=== PATIENT | female | born 1930 | race Caucasian/White ===

== ENCOUNTER 2017-08-02 12:33 | Inpatient (IN) | payer OTHER ==
--- NOTE | 2017-08-02 13:05 | EDPHY ---
H & P Stated Complaint: hypoxia without other symptoms HPI/ROS: CHIEF COMPLAINT: Hypoxic for 2 days HISTORY OF PRESENT ILLNESS: The patient is an 86 y/o female complaining of being hypoxic for the past 2 days. The last time her oxygen levels were checked was in December. Her daughter noticed she had low oxygen readings by using a home oximeter. Her daughter also notes she has had mild cough with clear sputum. She does not use home oxygen. Daughter denies having a recent illness. Denies history of heart disease. Patient denies fever, chills, chest pain, shortness of breath, dyspnea. No vomiting or diarrhea. No headache. Some peripheral edema noted. REVIEW OF SYSTEMS: Aside from elements discussed in the HPI, a comprehensive 10-point review of systems was reviewed and is negative. PAST MEDICAL HISTORY: Pre-diabetic, cholecystectomy SOCIAL HISTORY: Daughter at bedside, lives with daughter in [place], retired VITAL SIGNS: BP: 122/77 O2 Sat:76 Others reviewed by me GENERAL: Elderly female, somewhat odd affect, resting comfortably in no respiratory distress. HEENT: Atraumatic. Eyes: No icterus, no injection. Mouth: Moist mucous membranes. No erythema or lesions. Neck: supple with no adenopathy. LUNGS: Right-sided wet sounding crackles with a few wheezes, and a few rhonchi, Similar sounds on the left. Very diminished breath sounds on the left. CARDIAC: Holosystolic 4/6 murmur. Regular rate and rhythm, no rubs or gallops. ABDOMEN: Soft, nontender, nondistended, bowel sounds normal. BACK: No CVA tenderness. EXTREMITIES: 2+ pedal pitting edema. No trauma. Range of motion is normal throughout. NEURO: Alert and oriented, grossly nonfocal. SKIN: Warm and dry, no rash. PSYCHIATRIC: Normal mentation, no agitation. Portions of this note were transcribed by a medical physics researcher. I personally performed a history, physical exam, medical decision making, and confirmed accuracy of information the transcribed note. - Personal History Current Tetanus/Diphtheria Vaccine: No - Medical/Surgical History Hx Asthma: No Hx Chronic Respiratory Disease: No Hx Diabetes: No Hx Cardiac Disease: No Hx Renal Disease: No Hx Cirrhosis: No Hx Alcoholism: No Hx HIV/AIDS: No Hx Splenectomy or Spleen Trauma: No Other PMH: choly - Social History Smoking Status: Never smoked Constitutional: Initial Vital Signs Temperature (C) 36.4 C 08/02/17 12:37 Heart Rate 72 08/02/17 12:37 Respiratory Rate 18 08/02/17 12:37 Blood Pressure 122/77 H 08/02/17 12:37 O2 Sat (%) 76 L 08/02/17 12:37 O2 Delivery Mode Room Air O2 (L/minute) 4 Allergies/Adverse Reactions: No Known Allergies Allergy (Verified 08/02/17 12:34) Home Medications: Medication Instructions Recorded NK [No Known Home Meds] 08/02/17 Medical Decision Making - Diagnostics EKG Interpretation: 12-LEAD EKG: Please see the full report in [facility]. My interpretation: Sinus rhythm with left ventricular hypertrophy. Imaging Results: Imaging Impressions Chest X-Ray 08/02/17 13:12 Impression: Moderate CHF with basilar opacities, most likely related to effusions and atelectasis. Chest/Thorax CTA 08/02/17 14:16 Impression: 1. No evidence of pulmonary embolus using CT protocol. 2. Moderate bilateral pleural effusions with adjacent compressive atelectatic change. 3. Focal band of consolidation suspected inferior aspect right upper lobe. Consider pneumonia. 4. Groundglass attenuation involving both upper lobes in a patchy distribution. This could be related to pneumonitis versus mild edema/CHF. 5. Multinodular goiter. Imaging: I viewed and interpreted images myself ED Course/Re-evaluation: The patient is an 86 y/o female presenting with hypoxia for 2 days. When she arrived at triage her O2Sat was 76%. She was placed on supplemental O2 and she is currently at 95%. On exam she has right-sided wet sounding crackles with a few wheezes, and a few rhonchi. There are similar sounds that are diminished on the left. 1324: EKG interpreted 1345: Reviewed patient's chest x-rays, she has a significant bilateral pleural effusions. 1417: Reassessed patient and discussed imaging findings. She will need to be admitted for her pleural effusion and hypoxia. Patient and her daughter are comfortable with this plan. 1442: Consulted with hospitalist service, Dr. Chance accepts admission of this patient. A CT scan of the chest as well as echocardiogram were ordered while in the emergency department. Differential Diagnosis: Differential diagnosis for the patient's hypoxemia was considered including but not limited to pulmonary infectious processes, COPD exacerbation, pulmonary emboli, pulmonary edema, congestive heart failure, and cardiac causes. Consult/Admit Bed Type: Dr Chance, U - Data Points Laboratory Results: Laboratory Results 08/02/17 13:17 08/02/17 13:17 08/02/17 08/02/17 08/02/17 13:39 13:17 13:17 WBC RBC Hgb Hct MCV MCH MCHC RDW Plt Count MPV Neut % (Auto) Lymph % (Auto) [place] % (Auto) Eos % (Auto) Baso % (Auto) Nucleat RBC Rel Count Absolute Neuts (auto) Absolute Lymphs (auto) Absolute Monos (auto) Absolute Eos (auto) Absolute Basos (auto) Absolute Nucleated RBC Immature Gran % Immature Gran # D-Dimer Sodium 127 mEq/L L mEq/L (134-144) Potassium 4.8 mEq/L mEq/L (3.5-5.2) Chloride 90 mEq/L L mEq/L (97-110) Carbon Dioxide 30 mEq/l mEq/l (22-31) Anion Gap 7 mEq/L L mEq/L (8-16) BUN 11 mg/dL mg/dL (7-23) Creatinine 0.5 mg/dL L mg/dL (0.6-1.0) Estimated GFR > 60 Glucose 157 mg/dL H mg/dL (70-100) Calcium 8.5 mg/dL mg/dL (8.5-10.4) Ferritin 40.5 ng/mL ng/mL (6.2-264.0) Total Bilirubin 2.0 mg/dL H mg/dL (0.1-1.4) Conjugated Bilirubin 0.3 mg/dL mg/dL (0.0-0.5) Unconjugated Bilirubin 1.7 mg/dL H mg/dL (0.0-1.1) AST 33 IU/L IU/L (14-46) ALT 27 IU/L IU/L (9-52) Alkaline Phosphatase 121 IU/L IU/L (38-126) Troponin I < 0.012 ng/mL ng/mL (0.000-0.034) NT-Pro-B Natriuret Pep 284 pg/mL pg/mL (0-450) Total Protein 6.3 g/dL g/dL (6.3-8.2) Albumin 3.1 g/dL L g/dL (3.5-5.0) Urine Color YELLOW Urine Appearance CLEAR Urine pH 7.0 (5.0-7.5) Ur Specific [place] 1.006 (1.002-1.030) Urine Protein NEGATIVE (NEGATIVE) Urine Ketones NEGATIVE (NEGATIVE) Urine Blood NEGATIVE (NEGATIVE) Urine Nitrate NEGATIVE (NEGATIVE) Urine Bilirubin NEGATIVE (NEGATIVE) Urine Urobilinogen 4.0 EU H EU (0.2-1.0) Ur Leukocyte Esterase TRACE H (NEGATIVE) Urine RBC 5-10 /hpf H /hpf (0-3) Urine WBC 1-3 /hpf /hpf (0-3) Ur Epithelial Cells TRACE /lpf /lpf (NONE-1+) Urine Bacteria TRACE /hpf H /hpf (NONE SEEN) Urine Mucus TRACE /lpf /lpf (NONE-1+) Urine Osmolality 270 mosmo/kg L mosmo/kg (300-900) Ur Random Sodium 87 mEq/L mEq/L (30-90) Urine Glucose NEGATIVE (NEGATIVE) 08/02/17 08/02/17 13:17 13:17 WBC 4.58 10^3/uL 10^3/uL (3.80-9.50) RBC 4.72 10^6/uL 10^6/uL (4.18-5.33) Hgb 14.6 g/dL g/dL (12.6-16.3) Hct 40.2 % % (38.0-47.0) MCV 85.2 fL fL (81.5-99.8) MCH 30.9 pg pg (27.9-34.1) MCHC 36.3 g/dL g/dL (32.4-36.7) RDW 12.7 % % (11.5-15.2) Plt Count 96 10^3/uL L 10^3/uL (150-400) MPV 10.8 fL fL (8.7-11.7) Neut % (Auto) 71.7 % % (39.3-74.2) Lymph % (Auto) 18.3 % % (15.0-45.0) [place] % (Auto) 8.3 % % (4.5-13.0) Eos % (Auto) 1.1 % % (0.6-7.6) Baso % (Auto) 0.4 % % (0.3-1.7) Nucleat RBC Rel Count 0.0 % % (0.0-0.2) Absolute Neuts (auto) 3.28 10^3/uL 10^3/uL (1.70-6.50) Absolute Lymphs (auto) 0.84 10^3/uL L 10^3/uL (1.00-3.00) Absolute Monos (auto) 0.38 10^3/uL 10^3/uL (0.30-0.80) Absolute Eos (auto) 0.05 10^3/uL 10^3/uL (0.03-0.40) Absolute Basos (auto) 0.02 10^3/uL 10^3/uL (0.02-0.10) Absolute Nucleated RBC 0.00 10^3/uL 10^3/uL (0-0.01) Immature Gran % 0.2 % % (0.0-1.1) Immature Gran # 0.01 10^3/uL 10^3/uL (0.00-0.10) D-Dimer 0.49 ug/mLFEU ug/mLFEU (0.00-0.50) Sodium Potassium Chloride Carbon Dioxide Anion Gap BUN Creatinine Estimated GFR Glucose Calcium Ferritin Total Bilirubin Conjugated Bilirubin Unconjugated Bilirubin AST ALT Alkaline Phosphatase Troponin I NT-Pro-B Natriuret Pep Total Protein Albumin Urine Color Urine Appearance Urine pH Ur Specific [place] Urine Protein Urine Ketones Urine Blood Urine Nitrate Urine Bilirubin Urine Urobilinogen Ur Leukocyte Esterase Urine RBC Urine WBC Ur Epithelial Cells Urine Bacteria Urine Mucus Urine Osmolality Ur Random Sodium Urine Glucose Microbiology Results: MICROBIOLOGY 08/02/17 13:39 Nasal, Sinus - Other Respiratory Panel (PCR) - Final No Organism Detected Medications Given: Discontinued Medications Furosemide (Lasix Injection) 20 mg IVP EDNOW ONE Stop: 08/02/17 13:46 Last Admin: 08/02/17 13:59 Dose: 20 mg Departure - Departure Disposition: [facility] Inpatient Acute Clinical Impression: Hypoxemia, Pleural effusion, Hyponatremia, Edema, peripheral Congestive heart failure Qualifiers: Congestive heart failure type: unspecified congestive heart failure type Congestive heart failure chronicity: acute Qualified Code(s): I50.9 - Heart failure, unspecified Condition: Fair Report Scribed for: Luz Stoner Report Scribed by: Elizabeth Aguilera Date of Report: 08/02/17 Time of Report: 13:13
[2017-08-02 13:26] LABS: PLATELET COUNT 96 10^3/uL (150-400)
--- NOTE | 2017-08-02 13:27 | CPEKG ---
Heart Rate: 73 RR Interval: 822 P-R Interval: 156 QRSD Interval: 86 QT Interval: 456 QTC Interval: 503 P [place]: 56 QRS [place]: -23 T Wave [place]: 49 EKG Severity - ABNORMAL ECG - EKG Impression: SINUS RHYTHM EKG Impression: PROBABLE LEFT VENTRICULAR HYPERTROPHY EKG Impression: ANTERIOR ST ELEVATION, PROBABLY DUE TO LVH EKG Impression: BORDERLINE PROLONGED QT INTERVAL Electronically Signed By: Antony Acevedo 05-Aug-2017 17:09:26
[2017-08-02] MEDS ORDERED: FUROSEMIDE 20 MG/2 ML VIAL IVP ONE (13:45)
[2017-08-02] MEDS ORDERED: ONDANSETRON DISINTEGRATING 4 MG TAB PO PRN (14:43)
[2017-08-02] MEDS ORDERED: ACETAMINOPHEN 325 MG TAB PO PRN (14:43)
[2017-08-02] MEDS ORDERED: ONDANSETRON 4 MG/2 ML VIAL IVP PRN (14:43)
[2017-08-02] MEDS ORDERED: IOPAMIDOL (ISOVUE 370) 100 ML BTL IV ONE ×2 (14:58→15:52)
--- NOTE | 2017-08-02 16:22 | GHP ---
[f rep st] HISTORY AND PHYSICAL DATE OF ADMISSION: 08/02/2017 CHIEF COMPLAINT: Hypoxia. HISTORY OF PRESENT ILLNESS: An 86-year-old female, who lives currently with her daughter, who just l ost her 1 month ago, who asked to have her vital signs checked by her daughter today, and was found to be hypoxic with oxygen saturations at home oximetry in the 80s, therefore presented to the Emergency Department for evaluation. In the Emergency Department, she reports feeling fatigued. Den ies any specific pleuritic chest pain, chest pain, or shortness of breath. She has noted some decrea se in energy, but, again, has gone through the recent loss of her spouse. The patient denies specifi donell orthopnea, PND, chest pain, pleuritic chest pain. The daughter reports the patient has been co ughing some with a little more sputum production than typical, and that the sputum it is slightly dis colored, but without blood. The patient denies any changes in her bowel habits, abdominal pain, naus ea, or vomiting. Her oral intake has been less recently secondary to grief. She has had no unintent ional weight loss or weight gain. She has noted an increase in lower extremity edema over the course of the last several days, which also has been limiting her activity. Otherwise, denies any dysuria, hematuria, myalgias, arthralgias, or new rashes. PAST MEDICAL HISTORY: Removal of a basal cell carcinoma from her nose. SOCIAL HISTORY: Negative for tobacco, alcohol, illicit drugs. She lives with her daughter. ADVANCED DIRECTIVES: The patient is full cor, full tube. Her daughter is her medical decision maker . REVIEW OF SYSTEMS: A 10-point review of systems is negative with the exception of that reported in t he HPI. PHYSICAL EXAMINATION: VITAL SIGNS: Blood pressure is 130/80, heart rate 75, respiratory rate 16, 76 % on room air, 96 on 4 L, 36.4. GENERAL: This is a healthy-appearing elderly female, sitting up on the commode. HEENT: Notable for moist mucous membranes. Eye exam is negative for any icterus. CAR DIAC: The patient is regular. There is a loud systolic murmur heard best at the left sternal border . GASTROINTESTINAL: Positive bowel sounds. Abdomen is obese, soft. The patient reports mild diffu se tenderness to deep palpation. No rebound. No guarding. MUSCULOSKELETAL: Notable for 2+ edema t o below the ankles. SKIN: Exam is negative for any rashes. NEUROLOGIC: The patient is alert and o riented x3. Stable, ambulating with minimal assist. Strength is 5/5 bilaterally of the upper and lo wer extremities. Sensation is intact throughout. PSYCHIATRIC: She is pleasant and cooperative on i nterview and examination. DATA: White count 4.5, hematocrit 40.2, platelet count of 96, previous baselines in the range of 117 -140. Sodium 127, creatinine 0.5, blood glucose 157, AST 33, ALT 27, bilirubin of 2.0, troponin less than 0.012. BNP of 284. Chest x-ray, which I personally reviewed and interpreted, shows bilateral pleural effusions, left gre ater than right, with increased intrapulmonary markings. EKG, which I personally reviewed and interp reted, shows sinus rhythm, left axis deviation, biphasic P-wave in V1, no acute ST-T changes. ASSESSMENT AND PLAN: This is an 86-year-old female presenting with hypoxia. 1. Acute hypoxic respiratory failure, presumed secondary to pleural effusions and possible intrapare nchymal process. Differential would include heart failure, potentially takotsubo or more chronic sys tolic or diastolic heart failure. Possible infectious process, although symptoms are not highly susp icious for this. Low suspicion for pulmonary embolism. Possible malignancy, although, again, second skip symptoms are lacking. We will begin with a CT of the chest, transthoracic echocardiogram, and if appropriate thoracentesis. 2. Chronic thrombocytopenia. Unclear if this leads to the patient's new presentation of pulmonary e ffusions. We will initiate above workup and follow. 3. Heart murmur. The patient is unable to tell me if this is new. We will start with a transthorac ic echocardiogram. 4. Hyponatremia. Based on the exam, suspect it is hypervolemic in nature. We will send urine studi es. The patient received 1 dose of Lasix in the Emergency Department, will not repeat until further workup available. 5. Diet: Cardiac. 6. Prophylaxis: Holding on Lovenox for potential thoracentesis. We will place SCDs. DISPOSITION: I expect greater than 2 midnights. I have discussed the case with the emergency room shani gallego. The patient will be triaged to the PCU for care. /[id number]/MODL
--- NOTE | 2017-08-02 16:41 | PDMN ---
Medical Necessity Medical necessity: C/M review: est. > 2 MN LOS for eval and TX of acute hypoxic respiratory failure secondary to pleural effusions and possible intraparenchymal process, heart murmur, hyponatremia requiring planned echocardiogram, possible future thoracentesis during this admission, ongoing cardiac monitoring, supplemental O2, acute inpt PT/OT, comorbid chronic thrombocytopenia per H/P.
--- NOTE | 2017-08-02 17:08 | ECHO ---
[email or web address] [address] [address] Main: [phone] Fax: Transthoracic Echocardiogram Name: NATHALIE DAWKINS MR#: [id number] Study Date: 08/02/2017 Study Time: 04:08 PM Date of : 1930 Age: 86 year(s) Height: 154.9 cm (61 in.) Weight: 73.48 kg (162 lb.) BSA: 1.73 m2 Gender: Female Examination: Echo Indication: heart failure, Murmur, effusions Image Quality: Adequate Contrast: Requested by: Luz Stoner BP: / Heart Rate: 75 bpm Rhythm: Normal sinus rhythm Indication: heart failure, Murmur, effusions Procedure Staff Patient Ambassador: Jyoti Holloway Reading Physician: Antony Acevedo Requesting Provider: Conclusions: Moderate to Severe concentric LV hypertrophy. EF is 64 %. Unable to assess diastolic dysfunction. The left atrium is moderately to severely dilated. The right atrium is mildly to moderately dilated. Severe mitral valve leaflet calcification is present. Severe mitral annular calcification. Moderate mitral valve stenosis is present. Cannot rule out bicuspid aortic valve. Moderate aortic cusp calcification is present. Moderate calcific aortic valve stenosis. Mild tricuspid regurgitation is present. Right ventricular systolic pressure measures 48mmHg. There is a pleural effusion. Measurements: Chambers Valvular Assessment AV/MV Valvular Assessment TV/PV Normal Normal Normal Name Value Range Name Value Range Name Value Range Ao Kaity (MM): 2.6 cm (2.2 cm-3.7 AV Vmax: 2.95 m/s (1 m/s-1.7 TR Vmax: 3.26 mm/s ( - ) cm) m/s) TR PGmax: 43 mmHg ( - ) IVSd (2D): 1.5 cm (0.6 cm-1.1 AV maxP mmHg ( - ) syst. PAP: 48 mmHg ( - ) cm) AV meanP mmHg ( - ) PV Vmax: 1.22 m/s (0.6 m/s-0.9 LVDd (2D): 3.5 cm (3.9 cm-5.3 LVOT Vmax: 1.14 m/s (0.7 m/s-1.1 m/s) cm) m/s) PV PGmax: 6 mmHg ( - ) LVDs (2D): 2.0 cm (2.1 cm-4 OBDULIO (Vmax): 1.1 cm2 ( - ) cm) OBDULIO (VTI): 1.0 cm ( - ) LVPWd (2D): 1.2 cm ( - ) MV maxP mmHg ( - ) LVOTd 1.9 cm 1.9 cm mm MV meanP mmHg ( - ) LVEF (BP): 64 % (>=55 %) MV PHT: 0.090 s ( - ) Patient: NATHALIE DAWKINS Study Date: 08/02/2017 Page 1 of 2 04:08 PM RVDd(2D): 2.8 cm (1.9 cm-3.8 MVA (Vmax): 0.8 m/s ( - ) cmmm) MVA (PHT): 2.4 s ( - ) Continued Measurements: Chambers Valvular Assessment AV/MV Valvular Assessment TV/PV Name Value Name Value Name Value LADs Lon.5 cm MV VTI: 69.40 cm CVP (est.): 5 mmHg LA Area: 20.8 cm2 LA Volume: 82 ml LA Volume Index: 47.4 ml/m2 RA Area: 21.8 cm2 Findings: Left Ventricle: Normal size left ventricle. Moderate to Severe concentric LV hypertrophy. Normal global systolic LV function. EF is 64 %. No regional wall motion abnormality. Unable to assess diastolic dysfunction. Right Ventricle: Normal size right ventricle. Normal RV function. Left Atrium: The left atrium is moderately to severely dilated. Right Atrium: The right atrium is mildly to moderately dilated. Mitral Valve: Severe mitral valve leaflet calcification is present. Severe mitral annular calcification. Moderate mitral valve stenosis is present. There is no mitral valve regurgitation. Calcification noted on the mitral valve chordea as well. Aortic Valve: Cannot rule out bicuspid aortic valve. Moderate aortic cusp calcification is present. Trivial aortic valve regurgitation. Mean aortic valve gradient 24. Moderate calcific aortic valve stenosis. Tricuspid Valve: The tricuspid valve appears normal. Mild tricuspid regurgitation is present. Right ventricular systolic pressure measures 48mmHg. The pulmonary artery pressure is moderately increased. Pulmonic Valve: Pulmonary valve not well visualized. Aorta: Normal size aortic root measuring 2.6 cm. IVC: The IVC is normal sized. Pericardium: Trivial pericardial effusion. There is a pleural effusion. (No Signature Object) Patient: NATHALIE DAWKINS Study Date: 08/02/2017 Page 2 of 2 04:08 PM [id number]
--- NOTE | 2017-08-02 17:08 | ECHO ---
[email or web address] [address] [address] Main: [phone] Fax: Transthoracic Echocardiogram Name: NATHALIE DAWKINS MR#: [id number] Study Date: 08/02/2017 Study Time: 04:08 PM Date of : 1930 Age: 86 year(s) Height: 154.9 cm (61 in.) Weight: 73.48 kg (162 lb.) BSA: 1.73 m2 Gender: Female Examination: Echo Indication: heart failure, Murmur, effusions Image Quality: Adequate Contrast: Requested by: Luz Stoner BP: / Heart Rate: 75 bpm Rhythm: Normal sinus rhythm Indication: heart failure, Murmur, effusions Procedure Staff Primary Care Provider: Jyoti Holloway Reading Physician: Antony Acevedo Requesting Provider: Conclusions: Moderate to Severe concentric LV hypertrophy. EF is 64 %. Unable to assess diastolic dysfunction. The left atrium is moderately to severely dilated. The right atrium is mildly to moderately dilated. Severe mitral valve leaflet calcification is present. Severe mitral annular calcification. Moderate mitral valve stenosis is present. Cannot rule out bicuspid aortic valve. Moderate aortic cusp calcification is present. Moderate calcific aortic valve stenosis. Mild tricuspid regurgitation is present. Right ventricular systolic pressure measures 48mmHg. There is a pleural effusion. Measurements: Chambers Valvular Assessment AV/MV Valvular Assessment TV/PV Normal Normal Normal Name Value Range Name Value Range Name Value Range Ao Kaity (MM): 2.6 cm (2.2 cm-3.7 AV Vmax: 2.95 m/s (1 m/s-1.7 TR Vmax: 3.26 mm/s ( - ) cm) m/s) TR PGmax: 43 mmHg ( - ) IVSd (2D): 1.5 cm (0.6 cm-1.1 AV maxP mmHg ( - ) syst. PAP: 48 mmHg ( - ) cm) AV meanP mmHg ( - ) PV Vmax: 1.22 m/s (0.6 m/s-0.9 LVDd (2D): 3.5 cm (3.9 cm-5.3 LVOT Vmax: 1.14 m/s (0.7 m/s-1.1 m/s) cm) m/s) PV PGmax: 6 mmHg ( - ) LVDs (2D): 2.0 cm (2.1 cm-4 OBDULIO (Vmax): 1.1 cm2 ( - ) cm) OBDULIO (VTI): 1.0 cm ( - ) LVPWd (2D): 1.2 cm ( - ) MV maxP mmHg ( - ) LVOTd 1.9 cm 1.9 cm mm MV meanP mmHg ( - ) LVEF (BP): 64 % (>=55 %) MV PHT: 0.090 s ( - ) Patient: NATHALIE DAWKINS Study Date: 08/02/2017 Page 1 of 2 04:08 PM RVDd(2D): 2.8 cm (1.9 cm-3.8 MVA (Vmax): 0.8 m/s ( - ) cmmm) MVA (PHT): 2.4 s ( - ) Continued Measurements: Chambers Valvular Assessment AV/MV Valvular Assessment TV/PV Name Value Name Value Name Value LADs Lon.5 cm MV VTI: 69.40 cm CVP (est.): 5 mmHg LA Area: 20.8 cm2 LA Volume: 82 ml LA Volume Index: 47.4 ml/m2 RA Area: 21.8 cm2 Findings: Left Ventricle: Normal size left ventricle. Moderate to Severe concentric LV hypertrophy. Normal global systolic LV function. EF is 64 %. No regional wall motion abnormality. Unable to assess diastolic dysfunction. Right Ventricle: Normal size right ventricle. Normal RV function. Left Atrium: The left atrium is moderately to severely dilated. Right Atrium: The right atrium is mildly to moderately dilated. Mitral Valve: Severe mitral valve leaflet calcification is present. Severe mitral annular calcification. Moderate mitral valve stenosis is present. There is no mitral valve regurgitation. Calcification noted on the mitral valve chordea as well. Aortic Valve: Cannot rule out bicuspid aortic valve. Moderate aortic cusp calcification is present. Trivial aortic valve regurgitation. Mean aortic valve gradient 24. Moderate calcific aortic valve stenosis. Tricuspid Valve: The tricuspid valve appears normal. Mild tricuspid regurgitation is present. Right ventricular systolic pressure measures 48mmHg. The pulmonary artery pressure is moderately increased. Pulmonic Valve: Pulmonary valve not well visualized. Aorta: Normal size aortic root measuring 2.6 cm. IVC: The IVC is normal sized. Pericardium: Trivial pericardial effusion. There is a pleural effusion. (No Signature Object) Patient: NATHALIE DAWKINS Study Date: 08/02/2017 Page 2 of 2 04:08 PM [id number]
--- NOTE | 2017-08-02 17:08 | ECHO ---
[email or web address] [address] Main: [phone] Fax: Transthoracic Echocardiogram Name: NATHALIE DAWKINS MR#: [id number] Study Date: 08/02/2017 Study Time: 04:08 PM Date of : 1930 Age: 86 year(s) Height: 154.9 cm (61 in.) Weight: 73.48 kg (162 lb.) BSA: 1.73 m2 Gender: Female Examination: Echo Indication: heart failure, Murmur, effusions Image Quality: Adequate Contrast: Requested by: Luz Stoner BP: / Heart Rate: 75 bpm Rhythm: Normal sinus rhythm Indication: heart failure, Murmur, effusions Procedure Staff Maxillofacial Pathology: Jyoti Holloway Reading Physician: Antony Acevedo Requesting Provider: Conclusions: Moderate to Severe concentric LV hypertrophy. EF is 64 %. Unable to assess diastolic dysfunction. The left atrium is moderately to severely dilated. The right atrium is mildly to moderately dilated. Severe mitral valve leaflet calcification is present. Severe mitral annular calcification. Moderate mitral valve stenosis is present. Cannot rule out bicuspid aortic valve. Moderate aortic cusp calcification is present. Moderate calcific aortic valve stenosis. Mild tricuspid regurgitation is present. Right ventricular systolic pressure measures 48mmHg. There is a pleural effusion. Measurements: Chambers Valvular Assessment AV/MV Valvular Assessment TV/PV Normal Normal Normal Name Value Range Name Value Range Name Value Range Ao Kaity (MM): 2.6 cm (2.2 cm-3.7 AV Vmax: 2.95 m/s (1 m/s-1.7 TR Vmax: 3.26 mm/s ( - ) cm) m/s) TR PGmax: 43 mmHg ( - ) IVSd (2D): 1.5 cm (0.6 cm-1.1 AV maxP mmHg ( - ) syst. PAP: 48 mmHg ( - ) cm) AV meanP mmHg ( - ) PV Vmax: 1.22 m/s (0.6 m/s-0.9 LVDd (2D): 3.5 cm (3.9 cm-5.3 LVOT Vmax: 1.14 m/s (0.7 m/s-1.1 m/s) cm) m/s) PV PGmax: 6 mmHg ( - ) LVDs (2D): 2.0 cm (2.1 cm-4 OBDULIO (Vmax): 1.1 cm2 ( - ) cm) OBDULIO (VTI): 1.0 cm ( - ) LVPWd (2D): 1.2 cm ( - ) MV maxP mmHg ( - ) LVOTd 1.9 cm 1.9 cm mm MV meanP mmHg ( - ) LVEF (BP): 64 % (>=55 %) MV PHT: 0.090 s ( - ) Patient: NATHALIE DAWKINS Study Date: 08/02/2017 Page 1 of 2 04:08 PM RVDd(2D): 2.8 cm (1.9 cm-3.8 MVA (Vmax): 0.8 m/s ( - ) cmmm) MVA (PHT): 2.4 s ( - ) Continued Measurements: Chambers Valvular Assessment AV/MV Valvular Assessment TV/PV Name Value Name Value Name Value LADs Lon.5 cm MV VTI: 69.40 cm CVP (est.): 5 mmHg LA Area: 20.8 cm2 LA Volume: 82 ml LA Volume Index: 47.4 ml/m2 RA Area: 21.8 cm2 Findings: Left Ventricle: Normal size left ventricle. Moderate to Severe concentric LV hypertrophy. Normal global systolic LV function. EF is 64 %. No regional wall motion abnormality. Unable to assess diastolic dysfunction. Right Ventricle: Normal size right ventricle. Normal RV function. Left Atrium: The left atrium is moderately to severely dilated. Right Atrium: The right atrium is mildly to moderately dilated. Mitral Valve: Severe mitral valve leaflet calcification is present. Severe mitral annular calcification. Moderate mitral valve stenosis is present. There is no mitral valve regurgitation. Calcification noted on the mitral valve chordea as well. Aortic Valve: Cannot rule out bicuspid aortic valve. Moderate aortic cusp calcification is present. Trivial aortic valve regurgitation. Mean aortic valve gradient 24. Moderate calcific aortic valve stenosis. Tricuspid Valve: The tricuspid valve appears normal. Mild tricuspid regurgitation is present. Right ventricular systolic pressure measures 48mmHg. The pulmonary artery pressure is moderately increased. Pulmonic Valve: Pulmonary valve not well visualized. Aorta: Normal size aortic root measuring 2.6 cm. IVC: The IVC is normal sized. Pericardium: Trivial pericardial effusion. There is a pleural effusion. (No Signature Object) Patient: NATHALIE DAWKINS Study Date: 08/02/2017 Page 2 of 2 04:08 PM [id number]
[2017-08-03 05:17] LABS: PLATELET COUNT 103 10^3/uL (150-400)
[2017-08-03 05:20] VITALS: BP 144/64; PULSE 73; RESP 16; TEMP 97.6
[2017-08-03 10:51] LABS: INR 1.35 (0.83-1.16); PROTIME(PATIENT) 16.7 SEC (12.0-15.0)
[2017-08-03] MEDS ORDERED: LIDOCAINE 1% 300 MG/30 ML SDV ONE (11:28)
[2017-08-03] MEDS ORDERED: FUROSEMIDE 20 MG/2 ML VIAL IVP ONE (11:58)
--- NOTE | 2017-08-03 12:03 | PDHOMEO2F ---
Home Oxygen Face to Face Home Orders: I certify that a physician or a nurse practitioner or physician's digital assistant has had a hwio-yq-slxr encounter with this patient on the date of this order due to the diagnosis listed, which relates to the primary reason the patient requires home oxygen. Alternative treatments have been tried, or considered, and deemed ineffective. It is anticipated that supplemental oxygen will result in improvement with treatment. Home oxygen qualifying diagnosis: CHF SpO2 on room air (%): 76% Frequency of home oxygen needed: continuous Home oxygen delivery device: nasal cannula Concentrator: Yes E-tanks for mobility and back up: Yes If ordering portable O2, is the patient mobile in the home?: Yes I certify that, based on these findings, the home oxygen is medically necessary for this patient for the following length of time. Length of time home oxygen needed: 99 years
--- NOTE | 2017-08-03 12:03 | PDHOMEO2F ---
Home Oxygen Face to Face Home Orders: I certify that a physician or a nurse practitioner or physician's household assistant has had a gzwx-je-bqcu encounter with this patient on the date of this order due to the diagnosis listed, which relates to the primary reason the patient requires home oxygen. Alternative treatments have been tried, or considered, and deemed ineffective. It is anticipated that supplemental oxygen will result in improvement with treatment. Home oxygen qualifying diagnosis: CHF SpO2 on room air (%): 76% Frequency of home oxygen needed: continuous Home oxygen delivery device: nasal cannula Concentrator: Yes E-tanks for mobility and back up: Yes If ordering portable O2, is the patient mobile in the home?: Yes I certify that, based on these findings, the home oxygen is medically necessary for this patient for the following length of time. Length of time home oxygen needed: 99 years
--- NOTE | 2017-08-03 12:03 | PDHOMEO2F ---
Home Oxygen Face to Face Home Orders: I certify that a physician or a nurse practitioner or physician's budget assistant has had a bazz-jq-cdvw encounter with this patient on the date of this order due to the diagnosis listed, which relates to the primary reason the patient requires home oxygen. Alternative treatments have been tried, or considered, and deemed ineffective. It is anticipated that supplemental oxygen will result in improvement with treatment. Home oxygen qualifying diagnosis: CHF SpO2 on room air (%): 76% Frequency of home oxygen needed: continuous Home oxygen delivery device: nasal cannula Concentrator: Yes E-tanks for mobility and back up: Yes If ordering portable O2, is the patient mobile in the home?: Yes I certify that, based on these findings, the home oxygen is medically necessary for this patient for the following length of time. Length of time home oxygen needed: 99 years
--- NOTE | 2017-08-03 12:07 | PDHOMEO2F ---
Home Oxygen Face to Face Home Orders: I certify that a physician or a nurse practitioner or physician's retirement assistant has had a mtjg-eb-siys encounter with this patient on the date of this order due to the diagnosis listed, which relates to the primary reason the patient requires home oxygen. Alternative treatments have been tried, or considered, and deemed ineffective. It is anticipated that supplemental oxygen will result in improvement with treatment. Home oxygen qualifying diagnosis: chf SpO2 on room air (%): 76% Frequency of home oxygen needed: continuous Home oxygen liters per minute: 2-4 Home oxygen delivery device: nasal cannula Concentrator: Yes E-tanks for mobility and back up: Yes If ordering portable O2, is the patient mobile in the home?: Yes I certify that, based on these findings, the home oxygen is medically necessary for this patient for the following length of time. Length of time home oxygen needed: 99 years
--- NOTE | 2017-08-03 12:07 | PDHOMEO2F ---
Home Oxygen Face to Face Home Orders: I certify that a physician or a nurse practitioner or physician's collections assistant has had a faui-ht-hcia encounter with this patient on the date of this order due to the diagnosis listed, which relates to the primary reason the patient requires home oxygen. Alternative treatments have been tried, or considered, and deemed ineffective. It is anticipated that supplemental oxygen will result in improvement with treatment. Home oxygen qualifying diagnosis: chf SpO2 on room air (%): 76% Frequency of home oxygen needed: continuous Home oxygen liters per minute: 2-4 Home oxygen delivery device: nasal cannula Concentrator: Yes E-tanks for mobility and back up: Yes If ordering portable O2, is the patient mobile in the home?: Yes I certify that, based on these findings, the home oxygen is medically necessary for this patient for the following length of time. Length of time home oxygen needed: 99 years
--- NOTE | 2017-08-03 12:07 | PDHOMEO2F ---
Home Oxygen Face to Face Home Orders: I certify that a physician or a nurse practitioner or physician's rehab care assistant has had a zvgb-uu-hqtv encounter with this patient on the date of this order due to the diagnosis listed, which relates to the primary reason the patient requires home oxygen. Alternative treatments have been tried, or considered, and deemed ineffective. It is anticipated that supplemental oxygen will result in improvement with treatment. Home oxygen qualifying diagnosis: chf SpO2 on room air (%): 76% Frequency of home oxygen needed: continuous Home oxygen liters per minute: 2-4 Home oxygen delivery device: nasal cannula Concentrator: Yes E-tanks for mobility and back up: Yes If ordering portable O2, is the patient mobile in the home?: Yes I certify that, based on these findings, the home oxygen is medically necessary for this patient for the following length of time. Length of time home oxygen needed: 99 years
[2017-08-03 12:09] VITALS: O2SAT 85
--- NOTE | 2017-08-03 12:29 | GCON ---
[f rep st] CONSULTATION CARDIOVASCULAR CONSULTATION CHIEF COMPLAINT: Low oxygen level. HISTORY OF PRESENT ILLNESS: Her daughter brought her into the hospital because her oxygen level was low. The mother had no complaints. No chest pain. No shortness of breath. No orthopnea, PND. No dyspnea on exertion. No fever, chills, cough. No lightheadedness, dizziness. No focal neurologic d eficits. No nausea, vomiting, diarrhea. No rashes. No arthralgias. The patient says she feels perfectly fine and has no other specific complaints at all. She has had quite a hard year with her dying in May after taking care of him for a year with a massive stroke, and the daughter and she took care of the the whole time at home, and then he at home. The daughter thinks she has broken heart syndrome after that, her mother is v bharat upset about losing her . Her life has been much worse since then, and for the last year, she has been eating a lot of bad food s, candy and things really in reaction to the fact that they were both angry at the world that her hu marcos had a stroke after eating organic foods and trying to be healthy for his whole life, so they lan ve been kind of eating bad foods and rebelling against a healthy diet. The daughter thinks that has also been a factor in her gaining weight and being a little less active. The patient herself really is free of chest tightness, chest pain, jaw pain, can sleep flat, and in f act, during my examination, lies flat for over 40 minutes while I was in the room talking to them. The patient has dyslipidemia. She is obese. The patient takes no medications at home. It turns out that the daughter has been watching, and often her oxygen saturation is in the 80s, and that is why she came in at this point in time. She has had increasing lower extremity edema for several days. She has been moving around a little l ess than normal. CARDIAC RISK FACTORS: Negative for hypertension, diabetes mellitus, hyperuricemia. Positive for obe sity. Negative for smoking and negative for known coronary disease. Coronary artery disease does not run in the family. MEDICATIONS: Noted and she takes no significant medicines all the time. REVIEW OF SYSTEMS: Twelve-point review of systems negative except for basal cell carcinoma and as no shannan above. FAMILY HISTORY: There is no family history of premature coronary artery disease. No history of unex plained sudden at a young age in her family. SOCIAL HISTORY: She lives with her daughter out in [place] in [facility]. She has plenty of places she can walk, and she is willing to walk in the house. She does not smoke. She does not drink sign ificant amounts of alcohol. She was born in [place]. She loves opera. 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 She had a husban d for 57 years and is heartbroken that he is gone. He was a beautiful hotel or motel manager, and she misses h im every day, all the time PHYSICAL EXAMINATION: VITAL SIGNS: Blood pressure 125/75, heart rate 67, respiratory rate 12. She is afebrile. HEENT: Pupils equal and reactive. Mucous membranes and mouth moist. NECK: Supple. CARDIOVASCULAR: Reveals S1, S2. Systolic ejection murmur is present at the 2nd right intercostal sp camille moves up toward the neck, but there is no delayed carotid upstroke. There is a holosystolic murm ur at the left sternal border. ABDOMEN: Soft, nontender, without masses. CVA: No tenderness. EXT REMITIES: She has trace edema bilaterally. Homans sign negative. SKIN: Age-related changes. No s kin breakdown is present. No open wounds. NEUROLOGIC: She is very cooperative and answers all ques tions without any problems. She is very pleasant and cooperative. PSYCH: No obvious anxiety or dep ression. LABORATORIES: White count 4.5, hematocrit 40. Sodium 128, potassium 4.2, chloride 92, CO2 of 30, cr eatinine 0.5. Hemoglobin A1c 8.6. Hematocrit 37, white count 5.3. BNP 264. CT scan shows question of CHF, question of atelectasis, question of pneumonia. Echo shows moderate m itral valve stenosis, moderate aortic stenosis with a mean gradient 24, RV pressure 48, LVH. There is sinus rhythm, left axis deviation, no significant ST-T changes. Chest CT was negative for cancer, negative for pulmonary embolic disease. Chest x-ray itself was read as showing moderate CHF with basilar opacities. ASSESSMENT AND PLAN: 1. Congestive heart failure. 2. Peripheral edema. 3. Aortic stenosis. 4. Diastolic dysfunction. 5. Left ventricular hypertrophy. 6. Mitral stenosis. 7. Pulmonary hypertension. 8. Peripheral edema. The patient has heart failure on her x-ray. She is diuresing well with Lasix. She has pleural effus ions and the daughter and the mother wanted to know if I thought she needed to have the effusions tap ped today. I told her that if we do not tap the effusions today, we will not have as much informatio n about what might be causing her problems. Specifically, cancer is a diagnosis we would miss if we did not tap today that matters. Otherwise, we could wait and see what is going on. The mother is co ncerned about getting a needle put in her back and would prefer not to do that right now, but rather go home on diuretics and follow up in the office, and if effusions continue to be a problem when her failure is improved, then they would consider possibly doing more evaluation for that. She is not in terested at all in finding out if she has cancer at this point anyway. She certainly has a broken heart from her . She certainly has significant valvular heart dise ase, but she does not want valvular surgery. She feels like she can get around and live the life she wants quite well without it and is not going to go follow that route at this time at all. The daughter has many questions and is particularly concerned about what we should do about oxygen. I told her if her mother was not complaining of shortness of breath, was not cyanotic, or having sign ificant rapid respiratory rate or inability to get around and do things that she did not have to chec k her oxygen saturation all the time. If her oxygen saturation stays low, then I believe in doing ox ygen when she is in bed at night, when she is sitting around and not doing much, but I want her to be very careful not to trip on her oxygen apparatus because she is very fragile, has no good strength. Her balance I do not think is that great, and I think that if she is on oxygen all the time, she has a very high risk of having trouble with the cord and with the oxygen tank, and it is hard enough for her to get around without any of that stuff right now, so we need to build up her strength and see w here we go with this. I did tell her that the hospitalist and other people would give her opinions about what to do with ox ygen, and she should listen very carefully to them. They may be more interested than I am in keeping the oxygen at a certain level, but if she has no complaints at all, she is getting about, she is not tachypneic, and she is not feeling shortness of breath or breathless, they do not have to be checkin g her oxygen all the time. It is very hard for them to understand exactly what to do, and I have tried to make it simple so they have a good idea. I want her to follow very carefully with her family practice doctors as well. I told her I would not be, however, ordering oxygen for her and writing and working with that prescript ion, so she can have the other doctors arrange that the way that they all decide is the best way for her to have this done. She does have risk for coronary artery disease, and we can do further evaluations for that later. Ri ght now, she feels good enough that she would just like to get her medications stabilized and get eri e and then follow up afterwards. Her blood sugars have been bad, and her diet has been horrible. We talked extensively about this, and she swears she is going to get back on a better diet. We also came up with an exercise regime where I want her to exercise for at least 5 minutes walking c arefully in the house 2 times before lunch and 2 times after lunch, and she and the daughter have com mitted to trying this. If they have problems with it, we would want to know, and we want to follow u p with how things are going. All her other questions have been answered. Right now, we will watch her and see how she does. She really does not want to pursue anything else right now further, and that is acceptable to me since th at is what she wants. I spent a great deal of time going over all this with the daughter and she. Thank you very much for asking us to see this patient. /[id number]/MODL
--- NOTE | 2017-08-03 12:34 | ASMTCMCOM ---
CM Note CM Note Notes: Chart reviewed and discussed w/MD and RN. Pt lives at home w/dtr. Pt will dc home w/dtr and home O2. They do not want any other services per MD. Date Signed: 08/03/2017 12:34 PM Electronically Signed By:Yamileth Randall RN
--- NOTE | 2017-08-03 14:17 | PDHOMEO2F ---
Home Oxygen Face to Face Home Orders: I certify that a physician or a nurse practitioner or physician's registered sales assistant has had a ipdz-bs-nkts encounter with this patient on the date of this order due to the diagnosis listed, which relates to the primary reason the patient requires home oxygen. Alternative treatments have been tried, or considered, and deemed ineffective. It is anticipated that supplemental oxygen will result in improvement with treatment. Home oxygen qualifying diagnosis: chf SpO2 on room air (%): 85 Frequency of home oxygen needed: continuous Home oxygen liters per minute: 2 lpm Home oxygen delivery device: nasal cannula Concentrator: Yes E-tanks for mobility and back up: Yes If ordering portable O2, is the patient mobile in the home?: Yes I certify that, based on these findings, the home oxygen is medically necessary for this patient for the following length of time. Length of time home oxygen needed: 99 years
--- NOTE | 2017-08-03 14:17 | PDHOMEO2F ---
Home Oxygen Face to Face Home Orders: I certify that a physician or a nurse practitioner or physician's ssn/ssbn assistant navigator has had a gxnl-eh-opxk encounter with this patient on the date of this order due to the diagnosis listed, which relates to the primary reason the patient requires home oxygen. Alternative treatments have been tried, or considered, and deemed ineffective. It is anticipated that supplemental oxygen will result in improvement with treatment. Home oxygen qualifying diagnosis: chf SpO2 on room air (%): 85 Frequency of home oxygen needed: continuous Home oxygen liters per minute: 2 lpm Home oxygen delivery device: nasal cannula Concentrator: Yes E-tanks for mobility and back up: Yes If ordering portable O2, is the patient mobile in the home?: Yes I certify that, based on these findings, the home oxygen is medically necessary for this patient for the following length of time. Length of time home oxygen needed: 99 years
--- NOTE | 2017-08-03 14:17 | PDHOMEO2F ---
Home Oxygen Face to Face Home Orders: I certify that a physician or a nurse practitioner or physician's housekeeper/laundry assistant has had a tchi-ly-cmlr encounter with this patient on the date of this order due to the diagnosis listed, which relates to the primary reason the patient requires home oxygen. Alternative treatments have been tried, or considered, and deemed ineffective. It is anticipated that supplemental oxygen will result in improvement with treatment. Home oxygen qualifying diagnosis: chf SpO2 on room air (%): 85 Frequency of home oxygen needed: continuous Home oxygen liters per minute: 2 lpm Home oxygen delivery device: nasal cannula Concentrator: Yes E-tanks for mobility and back up: Yes If ordering portable O2, is the patient mobile in the home?: Yes I certify that, based on these findings, the home oxygen is medically necessary for this patient for the following length of time. Length of time home oxygen needed: 99 years
--- NOTE | 2017-08-03 14:55 | GDS ---
[f rep st] DISCHARGE SUMMARY DIAGNOSIS: 1. Respiratory failure, likely acute on chronic, due to effusions and pulmonary edema. 2. 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 3. Valvular heart disease. 4. Hyponatremia. 5. Diabetes. 6. Noncompliance. PROCEDURES DONE: 1. Chest and thoracic CT angiogram, no evidence of pulmonary embolus, bilateral pleural effusions wi th evidence of pulmonary edema, no obvious pneumonia. 2. Echocardiogram, normal EF with no obvious wall motion abnormalities, but severe left ventricular hypertrophy, left atrium moderately to severely dilated, right atrium mildly to moderately dilated, s evere mitral calcifications with moderate mitral valve stenosis and moderate aortic valve stenosis, e levated right ventricular systolic pressures of 48. CONSULTATIONS: Dr. Nathanael Payne, cardiology. HOSPITAL COURSE: The patient is an 86-year-old woman who is followed by Dr. Mars Godoy. She is on no medications at the time of admission. She was admitted when her daughter checked her oximetry an d noted it to be low. She had no symptoms at the time. In the emergency department, her oxygen satu ration was 76. She was admitted, after CT angiogram revealed no pulmonary embolism, for further curtis tment. She did improve her oxygenation significantly with supplemental oxygen and remained asymptoma tic. Dr. Payne saw her in the morning and discuss options including thoracentesis versus medical ma nagement. The daughter and patient opted for medical management and did not want a thoracentesis at this time. She was given IV Lasix with some good diuresis and the patient and daughter requested to be discharged home after 1 night stay. I did recommend an additional midnight stay for ongoing IV di uresis, however, the patient and daughter refused. She remained asymptomatic. She was set up with h ome oxygen, was given 2 doses of IV Lasix and sent home with oral Lasix at 20 mg daily. She will jason e one 20 mg tablet daily, get a metabolic panel done when she follows up with Dr. Godoy for followup this week. Dr. Payne also agreed to see her in followup and monitor her pulmonary edema and pleural effusions. CONDITION ON DISCHARGE: Good. She has been afebrile, heart rate 73, blood pressure 144/64. She is 85% on room air, up from 76 after diuresis. She is alert. She has no symptoms of chest pain or shor tness of breath. She does have bilateral lower extremity nonpitting edema. DISCHARGE MEDICATIONS: Please see discharge medication form. She was started on Lasix 20 mg daily. No other medications were prescribed or she takes no home medications. FOLLOWUP INSTRUCTIONS: She needs a metabolic panel and follow up with Dr. Goody this week. Follow u p with Dr. Payne as well from Cardiology. Total time spent with patient and daughter at the day of discharge and coordination of care is 40 min utes. Copy requested to: Michael Godoy /[id number]/MODL
== END 2017-08-03 15:26 | disposition home or self-care (01) | DRG 189 ==
LOC: F2W 17:00
PROVIDERS: ADMIT Hospitalist; ATTEND Hospitalist
DX: J96.21 Acute and chronic respiratory failure with hypoxia (principal); I50.30 Unspecified diastolic (congestive) heart failure; E87.1 Hypo-osmolality and hyponatremia; I51.7 Cardiomegaly; I35.0 Nonrheumatic aortic (valve) stenosis; R73.03 Prediabetes; D69.6 Thrombocytopenia, unspecified; E66.9 Obesity, unspecified; Z91.19 Patient's noncompliance with other medical treatment and regimen
CPT/HCPCS: J1940; Q9967